=== PATIENT | female | born 1960 | race Asian ===

== ENCOUNTER → 2022-12-30 | Outpatient (REF) ==
[2022-12-30 09:04] LABS: RSV AMPLIFICATION NEGATIVE (NEGATIVE)
== END ==
LOC: M EMP 08:12
PROVIDERS: ATTEND Family Medicine
DX: Z11.52 Encounter for screening for COVID-19 (principal)

== ENCOUNTER → 2023-01-19 | Outpatient (REF) | LOC: M LAB 14:44 | PROVIDERS: ATTEND Nurse Practitioner Adult Health | DX: Z02.1 Encounter for pre-employment examination (principal) ==

== ENCOUNTER → 2023-02-13 | Outpatient (REF) | LOC: M EMP 08:49 | PROVIDERS: ATTEND Family Medicine | DX: Z20.822 Contact with and (suspected) exposure to COVID-19 (principal) ==

== ENCOUNTER 2023-03-16 08:21 | Emergency (ER) | payer OTHER ==
[~2023-03-16] VITALS: Ht 149.9 cm; Wt 48.9 kg
[2023-03-16 09:08] LABS: BASO % 0.5 % (0.0-1.0); EOS # 0.1 10^3/uL (0.0-0.5); EOS % 2.3 % (0.0-3.0); HEMATOCRIT 44.4 % (36.0-47.0); HEMOGLOBIN 14.4 g/dl (12.0-15.5); LYMPH # 0.9 10^3/uL (1.5-5.0); LYMPH % 23.6 % (24.0-44.0); MEAN CORPUSCULAR HEMOGLOBIN 30.1 pg (27.0-33.0); MEAN CORPUSCULAR HGB CONC 32.4 g/dl (32.0-36.5); MEAN CORPUSCULAR VOLUME 92.9 fl (80.0-96.0); MONO # 0.3 10^3/uL (0.0-0.8); MONO % 8.3 % (2.0-8.0); NEUTROPHILS # 2.6 10^3/uL (1.5-8.5); PLATELET COUNT, AUTOMATED 175 10^3/uL (150-450); RED BLOOD COUNT 4.78 10^6/uL (4.00-5.40)
[2023-03-16 09:32] LABS: INR 0.86; PARTIAL THROMBOPLASTIN TIME 29.2 SECONDS (24.8-34.2); PROTHROMBIN TIME 11.9 SECONDS (12.5-14.5)
[2023-03-16] MEDS ORDERED: LISI40TA4 PO ×2 (09:49→13:43)
[2023-03-16] MEDS ORDERED: lisinopriL 40MG TAB PO ONE (09:50)
[2023-03-16] MEDS ORDERED: TRAZ-252 PO ×2 (09:50→13:44)
[2023-03-16] MEDS ORDERED: ATOR1TAB19 PO ×2 (09:50→13:43)
[2023-03-16 10:07] LABS: CK-MB VALUE MASS 1.2 NG/ML (<3.6)
[2023-03-16 10:09] LABS: ALBUMIN 3.8 G/DL (3.2-5.2); ALKALINE PHOSPHATASE 68 U/L (46-116); ALT/SGPT 24 U/L (7.0-40); AST/SGOT 23 U/L (<34); BILIRUBIN,DIRECT < 0.1 MG/DL (<0.4); BILIRUBIN,TOTAL 0.4 MG/DL (0.3-1.2); BLOOD UREA NITROGEN 15 MG/DL (9-23); CALCIUM LEVEL 8.7 MG/DL (8.3-10.6); CARBON DIOXIDE LEVEL 31 MMOL/L (20-31); CHLORIDE LEVEL 103 MMOL/L (98-107); CREATININE FOR GFR 0.56 MG/DL (0.55-1.30); GLOMERULAR FILTRATION RATE > 60.0 (>45); GLUCOSE, FASTING 112 MG/DL (74-106); POTASSIUM SERUM 3.9 MMOL/L (3.5-5.1); SODIUM LEVEL 140 MMOL/L (136-145)
[2023-03-16 10:10] LABS: CPK CREATINE PHOSPHOKINASE 177 U/L (34-145); MB/CK RELATIVE INDEX 0.67 (< OR =4)
[2023-03-16 10:14] LABS: RSV AMPLIFICATION NEGATIVE (NEGATIVE)
[2023-03-16 13:45] VITALS: BP 135/81
== END 2023-03-16 13:55 | disposition home or self-care (01) ==
LOC: M ED 08:21
DX: R20.2 Paresthesia of skin (principal); I10 Essential (primary) hypertension; E78.00 Pure hypercholesterolemia, unspecified; Z87.891 Personal history of nicotine dependence; Z79.899 Other long term (current) drug therapy

== ENCOUNTER → 2023-06-04 | Outpatient (CLI) | payer OTHER ==
[~2023-06-04] MED LIST: ATOR1TAB19 PO; LISI40TA4 PO; TRAZ-252 PO
[2023-06-04 11:08] LABS: HEMATOCRIT 42.1 % (36.0-47.0); HEMOGLOBIN 13.7 g/dl (12.0-15.5); MEAN CORPUSCULAR HEMOGLOBIN 30.3 pg (27.0-33.0); MEAN CORPUSCULAR HGB CONC 32.5 g/dl (32.0-36.5); MEAN CORPUSCULAR VOLUME 93.1 fl (80.0-96.0); PLATELET COUNT, AUTOMATED 183 10^3/uL (150-450); RED BLOOD COUNT 4.52 10^6/uL (4.00-5.40); WHITE BLOOD COUNT 3.9 10^3/uL (4.0-10.0)
[2023-06-04 11:25] LABS: CREATININE, URINE 95.4 MG/DL; MALB URINE SIEMENS < 3.0 MG/L; MAU/CREAT RATIO 3.1 MCG/MG (0.0-30.0)
[2023-06-04 11:26] LABS: C REACTIVE PROTEIN QUANTITATIV < 0.40 MG/DL (<1.0)
[2023-06-04 11:34] LABS: ALBUMIN 3.9 G/DL (3.2-5.2); ALKALINE PHOSPHATASE 67 U/L (46-116); ALT/SGPT 28 U/L (7.0-40); AST/SGOT 15 U/L (<34); BILIRUBIN,TOTAL 0.4 MG/DL (0.3-1.2); BLOOD UREA NITROGEN 16 MG/DL (9-23); CALCIUM LEVEL 9.2 MG/DL (8.3-10.6); CARBON DIOXIDE LEVEL 30 MMOL/L (20-31); CHLORIDE LEVEL 105 MMOL/L (98-107); CHOLESTEROL LEVEL 161 MG/DL (<200); CHOLESTEROL RISK RATIO 2.22 (<5); CREATININE FOR GFR 0.66 MG/DL (0.55-1.30); FREE T4 1.33 NG/DL (0.89-1.76); GLOMERULAR FILTRATION RATE > 60.0 (>45); GLUCOSE, FASTING 109 MG/DL (74-106); HDL CHOLESTEROL 72.3 MG/DL (>40); LDL CHOLESTEROL 76.5 MG/DL (<100); NON-HDL-C 88.7 MG/DL; POTASSIUM SERUM 4.3 MMOL/L (3.5-5.1); SODIUM LEVEL 142 MMOL/L (136-145); THYROID STIMULATING HORMONE 1.487 uIU/ML (0.55-4.78); TOTAL 25(OH) VITAMIN D 66.9 NG/ML (20.0-100.0); TRIGLYCERIDES LEVEL 61 MG/DL (<150); VITAMIN B12 LEVEL 1006 PG/ML (211-911)
[2023-06-04 11:35] LABS: HEMOGLOBIN A1c 6.1 % (4.0-6.0)
== END ==
LOC: M PLALAB 08:09
PROVIDERS: ATTEND Internal Medicine Hematology
DX: Z00.00 Encounter for general adult medical examination without abnormal findings (principal); Z12.9 Encounter for screening for malignant neoplasm, site unspecified

== ENCOUNTER → 2023-06-09 | Outpatient (REF) | payer OTHER | LOC: M SFHCPLAZ 13:03 | PROVIDERS: ATTEND Internal Medicine Hematology | DX: Z12.9 Encounter for screening for malignant neoplasm, site unspecified (principal) ==

== ENCOUNTER → 2023-08-18 | Outpatient (REF) | payer MEDICARE, OTHER, MEDICAID | LOC: M SFHCPLAZ 10:32 | PROVIDERS: ATTEND Internal Medicine Hematology | DX: A04.8 Other specified bacterial intestinal infections (principal) ==

== ENCOUNTER 2023-08-20 16:31 | Emergency (ER) | payer MEDICARE, OTHER, MEDICAID ==
[~2023-08-20] VITALS: Ht 149.9 cm; Wt 49.5 kg
[2023-08-20 16:32] VITALS: TEMP 97.8
[2023-08-20] MEDS ORDERED: OMEP-173 (16:41)
[2023-08-20] MEDS ORDERED: diphenhydrAMINE 50MG/ML VIAL IV STA (16:57)
[2023-08-20] MEDS ORDERED: FAMOTIDINE 20MG/2ML VIAL IVP ONE (17:00)
[2023-08-20] MEDS ORDERED: dexAMETHasone 20MG/5ML VIAL IV ONE (17:00)
[2023-08-20] MEDS ORDERED: NS 1,000 ML IV ONE (17:00)
[2023-08-20] MEDS ORDERED: ONDANSETRON 4MG 2ML VIAL IV ONE (17:55)
[2023-08-20 19:00] VITALS: BP 153/90
[2023-08-20 19:01] VITALS: O2SAT 97
[2023-08-20] MEDS ORDERED: PEPC1TAB5 PO (19:11)
== END 2023-08-20 19:30 | disposition home or self-care (01) ==
LOC: M ED 16:31
DX: T47.1X1A Poisoning by other antacids and anti-gastric-secretion drugs, accidental (unintentional), initial encounter (principal); I10 Essential (primary) hypertension; Z79.899 Other long term (current) drug therapy; Z88.8 Allergy status to other drugs, medicaments and biological substances
CPT/HCPCS: 93041; 94760; 96361; 96374; 96375; 99285; J1100; J1200; J2405

== ENCOUNTER → 2023-11-26 | Outpatient (REF) ==
[~2023-11-26] MED LIST changes: +OMEP-173; +PEPC1TAB5 PO
== END ==
LOC: M EMP 13:39
PROVIDERS: ATTEND Family Medicine
DX: Z11.52 Encounter for screening for COVID-19 (principal)

== ENCOUNTER 2023-12-05 06:12 | Emergency (ER) | payer MEDICARE, OTHER, MEDICAID ==
[~2023-12-05] VITALS: Ht 149.9 cm; Wt 50.4 kg
[2023-12-05] MEDS ORDERED: ACET325C5 PO (07:34)
[2023-12-05] MEDS ORDERED: IBUP200C25 PO (07:34)
[2023-12-05] MEDS ORDERED: BENZ200C70 PO (10:12)
[2023-12-05 10:20] VITALS: BP 157/90; TEMP 99.6; O2SAT 97
== END 2023-12-05 10:21 | disposition home or self-care (01) ==
LOC: M ED 06:12
DX: J06.9 Acute upper respiratory infection, unspecified (principal); B34.9 Viral infection, unspecified; Z20.828 Contact with and (suspected) exposure to other viral communicable diseases; Z11.52 Encounter for screening for COVID-19; R73.03 Prediabetes; I10 Essential (primary) hypertension; E78.5 Hyperlipidemia, unspecified; Z88.8 Allergy status to other drugs, medicaments and biological substances

== ENCOUNTER → 2023-12-07 | Outpatient (REF) | payer MEDICARE, OTHER, MEDICAID ==
[~2023-12-07] MED LIST changes: +ACET325C5 PO; +BENZ200C70 PO; +IBUP200C25 PO
== END ==
LOC: M SFHCPLAZ 10:25
PROVIDERS: ATTEND Family Medicine
DX: J06.9 Acute upper respiratory infection, unspecified (principal)

== ENCOUNTER → 2024-01-20 | Outpatient (CLI) | payer MEDICARE, OTHER, MEDICAID ==
[2024-01-20 11:42] LABS: HEMATOCRIT 42.8 % (36.0-47.0); HEMOGLOBIN 14.2 g/dl (12.0-15.5); MEAN CORPUSCULAR HEMOGLOBIN 30.4 pg (27.0-33.0); MEAN CORPUSCULAR HGB CONC 33.2 g/dl (32.0-36.5); MEAN CORPUSCULAR VOLUME 91.6 fl (80.0-96.0); PLATELET COUNT, AUTOMATED 247 10^3/uL (150-450); RED BLOOD COUNT 4.67 10^6/uL (4.00-5.40); WHITE BLOOD COUNT 4.6 10^3/uL (4.0-10.0)
[2024-01-20 12:04] LABS: C REACTIVE PROTEIN QUANTITATIV < 0.40 MG/DL (<1.0)
[2024-01-20 12:06] LABS: ALBUMIN 4.1 G/DL (3.2-5.2); ALKALINE PHOSPHATASE 71 U/L (46-116); ALT/SGPT 29 U/L (7.0-40); AST/SGOT 18 U/L (<34); BILIRUBIN,TOTAL 0.3 MG/DL (0.3-1.2); BLOOD UREA NITROGEN 14 MG/DL (9-23); CALCIUM LEVEL 8.3 MG/DL (8.3-10.6); CARBON DIOXIDE LEVEL 30 MMOL/L (20-31); CHLORIDE LEVEL 107 MMOL/L (98-107); CHOLESTEROL LEVEL 166 MG/DL (<200); CHOLESTEROL RISK RATIO 2.64 (<5); CREATININE FOR GFR 0.61 MG/DL (0.55-1.30); GLOMERULAR FILTRATION RATE > 60.0 (>45); GLUCOSE, FASTING 96 MG/DL (74-106); HDL CHOLESTEROL 62.8 MG/DL (>40); LDL CHOLESTEROL 90.4 MG/DL (<100); NON-HDL-C 103.2 MG/DL; POTASSIUM SERUM 3.8 MMOL/L (3.5-5.1); SODIUM LEVEL 143 MMOL/L (136-145); TOTAL 25(OH) VITAMIN D 39.1 NG/ML (20.0-100.0); TOTAL PROTEIN 7.2 G/DL (5.7-8.2); TRIGLYCERIDES LEVEL 64 MG/DL (<150); VITAMIN B12 LEVEL 1152 PG/ML (211-911)
[2024-01-20 12:07] LABS: THYROID STIMULATING HORMONE 1.448 uIU/ML (0.55-4.78)
[2024-01-20 12:08] LABS: FREE T4 1.17 NG/DL (0.89-1.76)
== END ==
LOC: M PLALAB 08:00
PROVIDERS: ATTEND Internal Medicine Hematology
DX: R73.03 Prediabetes (principal); Z79.899 Other long term (current) drug therapy

== ENCOUNTER 2024-02-24 09:29 | Day surgery (SDC) | payer MEDICARE, OTHER, MEDICAID ==
[~2024-02-24] VITALS: Ht 149.9 cm; Wt 49.0 kg
[~2024-02-24 09:29] MED LIST changes: +AMIT10TA7 PO; +AMLO1TAB24 PO; +CYAN500T14 PO; +VITA100093 PO
[2024-02-24] MEDS: NS 1,000 ML IV ONE (09:49)
[2024-02-24] MEDS ORDERED: propofoL 200 MG/20 ML VIAL As Ordered ONE (11:06)
[2024-02-24 11:19] VITALS: TEMP 98.3
[2024-02-24 11:39] VITALS: BP 140/80; O2SAT 100
== END 2024-02-24 11:51 | disposition home or self-care (01) ==
LOC: M OPP 09:29
PROVIDERS: ATTEND Surgery
DX: Z12.11 Encounter for screening for malignant neoplasm of colon (principal); K63.5 Polyp of colon; K64.9 Unspecified hemorrhoids; I10 Essential (primary) hypertension; Z79.02 Long term (current) use of antithrombotics/antiplatelets; Z79.899 Other long term (current) drug therapy; Z88.1 Allergy status to other antibiotic agents

== ENCOUNTER 2024-06-21 18:45 | Emergency (ER) | payer MEDICARE, OTHER, MEDICAID ==
[~2024-06-21] VITALS: Ht 149.9 cm; Wt 52.0 kg
[2024-06-21 18:46] VITALS: BP 162/84; TEMP 98.1; O2SAT 98
== END 2024-06-21 19:55 | disposition left against medical advice (07) ==
LOC: M ED 18:45
DX: Z53.21 Procedure and treatment not carried out due to patient leaving prior to being seen by health care provider (principal)

== ENCOUNTER → 2024-06-22 | Outpatient (REF) | LOC: M EMP 10:38 | PROVIDERS: ATTEND Family Medicine | DX: Z11.52 Encounter for screening for COVID-19 (principal) ==

== ENCOUNTER → 2024-06-23 | Outpatient (REF) | payer MEDICARE, OTHER, MEDICAID | LOC: M LAB REF 16:13 | PROVIDERS: ATTEND Physician Assistant | DX: B34.9 Viral infection, unspecified (principal) ==

== ENCOUNTER 2025-02-21 10:45 | Emergency (ER) | payer MEDICARE, OTHER, MEDICAID ==
[~2025-02-21] VITALS: Ht 149.9 cm; Wt 51.8 kg
[2025-02-21 10:50] VITALS: TEMP 97.8
[2025-02-21 12:09] LABS: BASO % 0.2 % (0.0-1.0); EOS # 0.1 10^3/uL (0.0-0.5); EOS % 2.2 % (0.0-3.0); HEMATOCRIT 39.6 % (36.0-47.0); HEMOGLOBIN 13.3 g/dl (12.0-15.5); LYMPH # 1.1 10^3/uL (1.5-5.0); LYMPH % 23.7 % (24.0-44.0); MEAN CORPUSCULAR HEMOGLOBIN 29.8 pg (27.0-33.0); MEAN CORPUSCULAR HGB CONC 33.6 g/dl (32.0-36.5); MEAN CORPUSCULAR VOLUME 88.8 fl (80.0-96.0); MONO # 0.3 10^3/uL (0.0-0.8); MONO % 6.9 % (2.0-8.0); PLATELET COUNT, AUTOMATED 204 10^3/uL (150-450); RED BLOOD COUNT 4.46 10^6/uL (4.00-5.40); WHITE BLOOD COUNT 4.5 10^3/uL (4.0-10.0)
[2025-02-21 12:31] LABS: CK-MB VALUE MASS 1.3 NG/ML (<3.6); LIPASE 33 U/L (12-53)
[2025-02-21 12:33] LABS: ALBUMIN 3.9 G/DL (3.2-5.2); ALKALINE PHOSPHATASE 89 U/L (35-104); ALT/SGPT 32 U/L (7.0-40); AST/SGOT 22 U/L (<34); BILIRUBIN,DIRECT < 0.1 MG/DL (<0.4); BILIRUBIN,TOTAL 0.4 MG/DL (0.3-1.2); BLOOD UREA NITROGEN 17 MG/DL (9-23); CALCIUM LEVEL 9.5 MG/DL (8.3-10.6); CARBON DIOXIDE LEVEL 30 MMOL/L (20-31); CHLORIDE LEVEL 104 MMOL/L (98-107); CREATININE FOR GFR 0.57 MG/DL (0.55-1.30); GLOMERULAR FILTRATION RATE > 90.0 (>45); GLUCOSE, FASTING 95 MG/DL (74-106); POTASSIUM SERUM 3.6 MMOL/L (3.5-5.1); SODIUM LEVEL 144 MMOL/L (136-145); TOTAL PROTEIN 7.3 G/DL (5.7-8.2)
[2025-02-21 12:51] LABS: CPK CREATINE PHOSPHOKINASE 190 U/L (34-145); MB/CK RELATIVE INDEX 0.68 (< OR =4)
[2025-02-21 13:34] LABS: CK-MB VALUE MASS 1.1 NG/ML (<3.6)
[2025-02-21 13:47] LABS: CPK CREATINE PHOSPHOKINASE 179 U/L (34-145); MB/CK RELATIVE INDEX 0.61 (< OR =4)
[2025-02-21] MEDS ORDERED: ISOVUE-370 76% 100ML VIAL As Ordered ONE (14:11)
[2025-02-21] MEDS ORDERED: PROT1TAB2 PO (15:11)
[2025-02-21 15:45] VITALS: BP 140/83; O2SAT 95
== END 2025-02-21 15:50 | disposition home or self-care (01) ==
LOC: M ED 10:45
DX: R07.89 Other chest pain (principal); R91.8 Other nonspecific abnormal finding of lung field; K21.9 Gastro-esophageal reflux disease without esophagitis; I10 Essential (primary) hypertension; E78.5 Hyperlipidemia, unspecified; Z88.1 Allergy status to other antibiotic agents; Z79.899 Other long term (current) drug therapy
CPT/HCPCS: 36415; 71045; 71275; 80048; 80076; 82550; 82553; 83690; 84484; 85025; 93005; 93041; 94760; 99285; Q9967

== ENCOUNTER → 2025-06-30 | Outpatient (REF) | payer MEDICARE, OTHER, MEDICAID ==
[~2025-06-30] MED LIST changes: +AMIT10TA11 PO; -AMIT10TA7 PO; +AMLO1TAB25 PO; +LISI40TA10 PO; -LISI40TA4 PO; +OMEP40CA5 PO; +PROT1TAB2 PO
[2025-06-30 11:19] LABS: CREATININE, URINE 154.3 MG/DL
[2025-06-30 11:20] LABS: MALB URINE SIEMENS 5.0 MG/L; MAU/CREAT RATIO 3.2 MCG/MG (0.0-30.0)
[2025-06-30 11:22] LABS: ALT/SGPT 28 U/L (7.0-40); AST/SGOT 22 U/L (<34); CALCIUM LEVEL 9.2 MG/DL (8.3-10.6); CARBON DIOXIDE LEVEL 30 MMOL/L (20-31); CHLORIDE LEVEL 104 MMOL/L (98-107); CHOLESTEROL LEVEL 190 MG/DL (<200); CHOLESTEROL RISK RATIO 3.28 (<5); CREATININE FOR GFR 0.64 MG/DL (0.55-1.30); GLOMERULAR FILTRATION RATE > 90.0 (>45); LDL CHOLESTEROL 107.0 MG/DL (<100); NON-HDL-C 132.2 MG/DL; POTASSIUM SERUM 3.8 MMOL/L (3.5-5.1); SODIUM LEVEL 144 MMOL/L (136-145); TRIGLYCERIDES LEVEL 126 MG/DL (<150)
== END ==
LOC: M SFHCPLAZ 10:08
PROVIDERS: ATTEND Family Medicine
DX: I10 Essential (primary) hypertension (principal); E78.2 Mixed hyperlipidemia

== ENCOUNTER → 2025-08-31 | Outpatient (CLI) | payer MEDICARE, OTHER | LOC: M RAD 08:17 | PROVIDERS: ATTEND Student in an Organized Health Care Education/Training Program | DX: R91.8 Other nonspecific abnormal finding of lung field (principal); F17.210 Nicotine dependence, cigarettes, uncomplicated ==

== ENCOUNTER → 2025-10-27 | Outpatient (REF) | payer MEDICARE, OTHER | LOC: M SFHCPLAZ 09:42 | PROVIDERS: ATTEND Family Medicine | DX: Z53.9 Procedure and treatment not carried out, unspecified reason (principal) ==

== ENCOUNTER → 2025-11-06 | Outpatient (REF) | payer MEDICARE, OTHER | LOC: M LAB REF 11:48 | PROVIDERS: ATTEND Physician Assistant Medical | DX: B34.9 Viral infection, unspecified (principal) ==